=== PATIENT | female | born 1985 | race Caucasian/White ===

== ENCOUNTER 2020-01-09 09:54 | Emergency (ER) | payer BC ==
[~2020-01-09] VITALS: Ht 167.6 cm; Wt 109.1 kg
[2020-01-09 11:21] VITALS: BP 125/78
== END 2020-01-09 11:20 | disposition home or self-care (01) ==
LOC: ED 09:54
DX: M25.562 Pain in left knee (principal); Z32.02 Encounter for pregnancy test, result negative

== ENCOUNTER → 2020-12-03 | Outpatient (CLI) | payer BC | LOC: RAD 15:23 | DX: S83.252A Bucket-handle tear of lateral meniscus, current injury, left knee, initial encounter (principal) ==

== ENCOUNTER → 2024-05-28 | Outpatient (CLI) | payer BC ==
[2024-05-28 08:27] LABS: BASO # 0.01 K/mm3 (0.02-0.10); EOS % 2.1 % (1.0-5.0); HEMATOCRIT 39.7 % (37.0-47.0); HEMOGLOBIN 12.4 g/dL (12.5-16.0); MEAN CELL VOLUME 82 fl (78-100); MEAN CORPUSCULAR HEMOGLOBIN 26 pg (27-31); MEAN CORPUSCULAR HGB CONC 31 g/dL (33-37); MEAN PLATELET VOLUME 9.8 fl (7.4-10.4); MONO # 0.34 K/mm3 (0.20-0.80); NEU # 3.67 K/mm3 (1.40-6.50); PLATELET COUNT 245 K/mm3 (130-400); RED BLOOD COUNT 4.87 M/mm3 (4.10-5.30); RED CELL DISTRIBUTION WIDTH 15.4 % (11.5-14.5); WHITE BLOOD COUNT 4.8 K/mm3 (4.8-10.8)
[2024-05-28 08:37] LABS: ALBUMIN 4.1 g/dL (3.5-5.0)
[2024-05-28 08:38] LABS: CALCIUM 9.4 mg/dL (8.3-10.5)
[2024-05-28 08:39] LABS: TOTAL PROTEIN 7.4 g/dL (6.4-8.3)
[2024-05-28 08:41] LABS: TOTAL BILIRUBIN 0.7 mg/dL (0.2-1.2)
== END ==
LOC: LAB 08:14
PROVIDERS: Physician Assistant
DX: Z13.29 Encounter for screening for other suspected endocrine disorder (principal); Z13.220 Encounter for screening for lipoid disorders; R42 Dizziness and giddiness; K90.9 Intestinal malabsorption, unspecified